=== PATIENT | female | born 1945 | race Caucasian/White ===

== ENCOUNTER 2018-05-10 05:48 | Day surgery (SDC) | payer OTHER, MEDICARE ==
[2018-05-07 16:02] VITALS: BMI 30.7
[2018-05-10] MEDS ORDERED: KETAMINE HCL 500 MG/10 ML VIAL ONE (07:42)
[2018-05-10 09:24] VITALS: TEMP 98.4
[2018-05-10 09:26] VITALS: BP 132/65; PULSE 72
[2018-05-10] MEDS ORDERED: ONDANSETRON 4 MG/2 ML VIAL IVPUSH PRN (09:27)
== END 2018-05-10 09:25 | disposition home or self-care (01) ==
LOC: FECT 05:48
PROVIDERS: ATTEND Psychiatry & Neurology Psychiatry
PROC: GZB4ZZZ Other Electroconvulsive Therapy (ICD-10-PCS; principal; 2018-05-10 07:30)
DX: F33.2 Major depressive disorder, recurrent severe without psychotic features (principal)
CPT/HCPCS: 90870; 94760

== ENCOUNTER 2018-05-17 05:50 | Day surgery (SDC) | payer OTHER, MEDICARE ==
[2018-05-14 07:21] VITALS: BMI 30.7
[2018-05-17] MEDS ORDERED: ONDANSETRON 4 MG/2 ML VIAL IVPUSH PRN (07:34)
[2018-05-17 08:41] VITALS: TEMP 98.1
[2018-05-17] MEDS ORDERED: KETAMINE HCL 500 MG/10 ML VIAL ONE (09:09)
[2018-05-17 10:30] VITALS: BP 135/76; PULSE 77
== END 2018-05-17 10:40 | disposition home or self-care (01) ==
LOC: FECT 05:50
PROVIDERS: ATTEND Psychiatry & Neurology Psychiatry
PROC: GZB4ZZZ Other Electroconvulsive Therapy (ICD-10-PCS; principal; 2018-05-17 07:30)
DX: F33.2 Major depressive disorder, recurrent severe without psychotic features (principal)
CPT/HCPCS: 90870; 94760

== ENCOUNTER 2018-05-22 05:47 | Day surgery (SDC) | payer OTHER, MEDICARE ==
[2018-05-14 07:45] VITALS: BMI 30.7
[2018-05-22] MEDS ORDERED: KETAMINE HCL 500 MG/10 ML VIAL ONE (07:06)
[2018-05-22 08:32] VITALS: TEMP 98.4
[2018-05-22 08:44] VITALS: BP 138/72; PULSE 74
== END 2018-05-22 08:58 | disposition home or self-care (01) ==
LOC: FECT 05:47
PROVIDERS: ATTEND Psychiatry & Neurology Psychiatry
PROC: GZB4ZZZ Other Electroconvulsive Therapy (ICD-10-PCS; principal; 2018-05-22 07:30)
DX: F33.2 Major depressive disorder, recurrent severe without psychotic features (principal)
CPT/HCPCS: 90870; 94760

== ENCOUNTER 2018-05-24 05:41 | Day surgery (SDC) | payer OTHER, MEDICARE ==
[2018-05-23 12:11] VITALS: BMI 30.7
[2018-05-24] MEDS ORDERED: KETAMINE HCL 500 MG/10 ML VIAL ONE (09:05)
[2018-05-24 10:10] VITALS: TEMP 98.5
[2018-05-24 10:30] VITALS: BP 134/74; PULSE 81
== END 2018-05-24 10:30 | disposition home or self-care (01) ==
LOC: FECT 05:41
PROVIDERS: ATTEND Psychiatry & Neurology Psychiatry
PROC: GZB4ZZZ Other Electroconvulsive Therapy (ICD-10-PCS; principal; 2018-05-24 07:30)
DX: F33.2 Major depressive disorder, recurrent severe without psychotic features (principal)
CPT/HCPCS: 90870; 94760

== ENCOUNTER 2018-05-27 05:51 | Day surgery (SDC) | payer OTHER, MEDICARE ==
[2018-05-24 11:54] VITALS: BMI 30.7
[2018-05-27] MEDS ORDERED: ONDANSETRON 4 MG/2 ML VIAL IVPUSH PRN (07:31)
[2018-05-27] MEDS ORDERED: KETAMINE HCL 500 MG/10 ML VIAL ONE (07:57)
[2018-05-27 09:29] VITALS: TEMP 98.2
[2018-05-27 09:51] VITALS: BP 139/84; PULSE 77
== END 2018-05-27 10:00 | disposition home or self-care (01) ==
LOC: FECT 05:51
PROVIDERS: ATTEND Psychiatry & Neurology Psychiatry
PROC: GZB4ZZZ Other Electroconvulsive Therapy (ICD-10-PCS; principal; 2018-05-27)
DX: F33.2 Major depressive disorder, recurrent severe without psychotic features (principal)
CPT/HCPCS: 90870

== ENCOUNTER 2018-05-29 05:37 | Day surgery (SDC) | payer OTHER, MEDICARE ==
[2018-05-27 12:51] VITALS: BMI 30.7
[2018-05-29] MEDS ORDERED: KETAMINE HCL 500 MG/10 ML VIAL ONE (06:57)
[2018-05-29] MEDS ORDERED: ACETAMINOPHEN 325 MG TABLET (FP) PO PRN (07:09)
[2018-05-29 08:27] VITALS: TEMP 98
[2018-05-29 09:36] VITALS: BP 130/80; PULSE 70
== END 2018-05-29 09:15 | disposition home or self-care (01) ==
LOC: FECT 05:37
PROVIDERS: ATTEND Psychiatry & Neurology Psychiatry
PROC: GZB4ZZZ Other Electroconvulsive Therapy (ICD-10-PCS; principal; 2018-05-29 07:00)
DX: F33.2 Major depressive disorder, recurrent severe without psychotic features (principal)
CPT/HCPCS: 90870; 94760

== ENCOUNTER 2018-05-31 05:47 | Day surgery (SDC) | payer OTHER, MEDICARE ==
[2018-05-30 13:08] VITALS: BMI 30.7
[2018-05-31] MEDS ORDERED: KETAMINE HCL 500 MG/10 ML VIAL ONE (07:53)
[2018-05-31 08:48] VITALS: PULSE 83; TEMP 98.3
[2018-05-31 09:26] VITALS: BP 129/69
== END 2018-05-31 09:20 | disposition home or self-care (01) ==
LOC: FECT 05:47
PROVIDERS: ATTEND Psychiatry & Neurology Psychiatry
PROC: GZB4ZZZ Other Electroconvulsive Therapy (ICD-10-PCS; principal; 2018-05-31 07:00)
DX: F33.2 Major depressive disorder, recurrent severe without psychotic features (principal)
CPT/HCPCS: 90870; 94760

== ENCOUNTER 2018-06-03 05:35 | Day surgery (SDC) | payer OTHER, MEDICARE ==
[2018-05-31 15:00] VITALS: BMI 30.7
[2018-06-03 06:56] VITALS: TEMP 98
--- NOTE | 2018-06-03 07:18 | HP ---
Admitting History and Physical - Admission History of Present Illness: Patient is a 72 y/o obese female with a past medical history of depression. Patient presents for ect, she has been undergoing ect since 04/22. Her last ect was 05/31/18. Patient reports feeling well, she denies any recent illnesses or hospitalizations. Patient reports minimal improvement in depressive symptoms since starting ect. She denies any suicidal or homicidal ideation, visual or auditory hallucinations. Patient reports compliance with prescribed medications. History Source: Patient Limitations to Obtaining History: No Limitations - Smoking History Smoking history: Former smoker Have you smoked in the past 12 months: No If you are a former smoker, when did you quit?: 1980S - Alcohol/Substance Use Hx Alcohol Use: Yes (1 WINE DAILY) History of Substance Use: reports: None - Social History Usual Living Arrangement: Yes: With Spouse ADL: Independent Occupation: retired History of Recent Travel: No Home Medications - Allergies Allergies/Adverse Reactions: Allergies Allergy/AdvReac Type Severity Reaction Status Date / Time No Known Allergies Allergy Verified 05/27/18 12:42 - Home Medications Home Medications: Ambulatory Orders Brexpiprazole [Rexulti] 2 mg PO HS 05/01/18 Clonazepam [Klonopin] 1 mg PO HS 05/01/18 Lamotrigine [LaMICtal -] 100 mg PO DAILY 05/01/18 Liraglutide [Victoza -] 1.2 mg SQ DAILY 05/01/18 Lorazepam [Ativan] 1 mg PO HS PRN 05/01/18 Metformin HCl [Metformin HCl ER] 1,000 - 1,500 cap PO DAILY 05/01/18 Naltrexone HCl 50 mg PO DAILY 05/01/18 Quetiapine Fumarate [Seroquel -] 25 mg PO HS 05/01/18 Vortioxetine Hydrobromide [Trintellix] 20 mg PO HS 05/01/18 Zolpidem Tartrate [Ambien] 5 mg PO HS PRN 05/06/18 Family Disease History - Family Disease History Family Disease History: Diabetes: Father, Heart Disease: Father, CA: Mother ( hakan's diseae ), Sister, Other: Mother Review of Systems - Review of Systems Constitutional: reports: No Symptoms Eyes: reports: No Symptoms HENT: reports: No Symptoms Neck: reports: No Symptoms Cardiovascular: reports: No Symptoms Respiratory: reports: No Symptoms Gastrointestinal: reports: No Symptoms Genitourinary: reports: No Symptoms Musculoskeletal: reports: No Symptoms Integumentary: reports: No Symptoms Neurological: reports: No Symptoms Endocrine: reports: No Symptoms Hematology/Lymphatic: reports: No Symptoms Psychiatric: reports: Depression Physical Examination Vital Signs: Vital Signs Temperature 98 F 06/03/18 06:55 Pulse Rate 70 06/03/18 06:55 Respiratory Rate 18 06/03/18 06:55 Blood Pressure 132/76 06/03/18 06:55 O2 Sat by Pulse Oximetry (%) 96 06/03/18 06:55 Constitutional: Yes: Well Nourished, No Distress, Calm Eyes: Yes: WNL, Conjunctiva Clear, EOM Intact HENT: Yes: WNL, Atraumatic, Normocephalic Neck: Yes: WNL, Supple, Trachea Midline Cardiovascular: Yes: WNL, Regular Rate and Rhythm, S1, S2 Respiratory: Yes: WNL, Regular, CTA Bilaterally Gastrointestinal: Yes: WNL, Normal Bowel Sounds, Soft ...Rectal Exam: Yes: Deferred Renal/: Yes: WNL Musculoskeletal: Yes: WNL Extremities: Yes: WNL Edema: No Peripheral Pulses WNL: Yes Integumentary: Yes: WNL Neurological: Yes: WNL, Alert, Oriented ...Motor Strength: WNL Psychiatric: Yes: WNL, Alert, Oriented Labs: reviewed 04/22 Imaging - Results EKG: Image Reviewed, Other (nsr) Assessment/Plan patient is a 72 y/o female that presents for ect, labs and ekg reviewed patient is medically optimized for procedure informed consent, risks/benefits to be obtained by Dr Ferrer
[2018-06-03] MEDS ORDERED: KETAMINE HCL 500 MG/10 ML VIAL ONE (07:46)
[2018-06-03 09:38] VITALS: BP 136/72; PULSE 72
== END 2018-06-03 09:42 | disposition home or self-care (01) ==
LOC: FECT 05:35
PROVIDERS: ATTEND Psychiatry & Neurology Psychiatry
PROC: GZB4ZZZ Other Electroconvulsive Therapy (ICD-10-PCS; principal; 2018-06-03 09:00)
DX: F33.2 Major depressive disorder, recurrent severe without psychotic features (principal)
CPT/HCPCS: 90870; 94760

== ENCOUNTER 2018-06-07 05:36 | Day surgery (SDC) | payer OTHER, MEDICARE ==
[2018-06-04 10:20] VITALS: BMI 30.7
[2018-06-07] MEDS ORDERED: ONDANSETRON 4 MG/2 ML VIAL IVPUSH PRN (07:43)
[2018-06-07] MEDS ORDERED: ACETAMINOPHEN 325 MG TABLET (FP) PO PRN (07:43)
[2018-06-07] MEDS ORDERED: KETAMINE HCL 500 MG/10 ML VIAL ONE (08:24)
[2018-06-07 09:44] VITALS: TEMP 98.3
[2018-06-07 09:46] VITALS: BP 125/75; PULSE 92
== END 2018-06-07 09:50 | disposition home or self-care (01) ==
LOC: FECT 05:36
PROVIDERS: ATTEND Psychiatry & Neurology Psychiatry
PROC: GZB4ZZZ Other Electroconvulsive Therapy (ICD-10-PCS; principal; 2018-06-07 07:45)
DX: F33.2 Major depressive disorder, recurrent severe without psychotic features (principal)
CPT/HCPCS: 90870; 94760

== ENCOUNTER 2018-06-21 05:40 | Day surgery (SDC) | payer OTHER, MEDICARE ==
[2018-06-12 07:17] VITALS: BMI 30.7
[2018-06-21] MEDS ORDERED: KETAMINE HCL 500 MG/10 ML VIAL ONE (08:52)
[2018-06-21 09:49] VITALS: TEMP 97.9
[2018-06-21 10:03] VITALS: BP 135/75; PULSE 85
== END 2018-06-21 10:20 | disposition home or self-care (01) ==
LOC: FECT 05:40
PROVIDERS: ATTEND Psychiatry & Neurology Psychiatry
PROC: GZB4ZZZ Other Electroconvulsive Therapy (ICD-10-PCS; principal; 2018-06-21 07:00)
DX: F33.2 Major depressive disorder, recurrent severe without psychotic features (principal)
CPT/HCPCS: 90870; 94760

== ENCOUNTER 2018-06-26 05:42 | Day surgery (SDC) | payer OTHER, MEDICARE ==
[2018-06-19 10:06] VITALS: BMI 30.7
[2018-06-26] MEDS ORDERED: KETAMINE HCL 500 MG/10 ML VIAL ONE (07:44)
[2018-06-26 09:55] VITALS: BP 131/80; PULSE 75; TEMP 97.8
== END 2018-06-26 09:50 | disposition home or self-care (01) ==
LOC: FECT 05:42
PROVIDERS: ATTEND Psychiatry & Neurology Psychiatry
PROC: GZB4ZZZ Other Electroconvulsive Therapy (ICD-10-PCS; principal; 2018-06-26 07:00)
DX: F33.2 Major depressive disorder, recurrent severe without psychotic features (principal)
CPT/HCPCS: 90870; 94760

== ENCOUNTER 2018-06-28 05:41 | Day surgery (SDC) | payer OTHER, MEDICARE ==
[2018-06-19 10:10] VITALS: BMI 30.7
[2018-06-28] MEDS ORDERED: KETAMINE HCL 500 MG/10 ML VIAL ONE (07:33)
[2018-06-28 09:05] VITALS: TEMP 98.2
[2018-06-28 09:32] VITALS: BP 135/72; PULSE 80
== END 2018-06-28 09:33 | disposition home or self-care (01) ==
LOC: FECT 05:41
PROVIDERS: ATTEND Psychiatry & Neurology Psychiatry
PROC: GZB4ZZZ Other Electroconvulsive Therapy (ICD-10-PCS; principal; 2018-06-28 07:00)
DX: F33.2 Major depressive disorder, recurrent severe without psychotic features (principal)
CPT/HCPCS: 90870; 94760